=== PATIENT | male | born 2000 | race Hispanic/Latino ===

== ENCOUNTER 2024-03-13 12:10 | Emergency (ER) | payer SELFPAY ==
[~2024-03-13] VITALS: Ht 167.6 cm; Wt 90.7 kg
[2024-03-13 12:33] VITALS: BP 138/75
[2024-03-13 12:45] VITALS: BP 134/92
[2024-03-13] MEDS ORDERED: CORTISPORIN OTI10 M2 AD (12:59)
[2024-03-13 13:00] VITALS: BP 121/87
[2024-03-13 13:15] VITALS: BP 115/68
[2024-03-13 13:30] VITALS: BP 111/63
[2024-03-13 13:45] VITALS: BP 124/64
== END 2024-03-13 13:54 | disposition home or self-care (01) | DRG 156 ==
LOC: ED 12:10
DX: H60.91 Unspecified otitis externa, right ear (principal)